=== PATIENT | male | born 1975 | race Caucasian/White ===

== ENCOUNTER 2017-02-16 17:31 | Observation (INO) | payer BC ==
[~2017-02-16] VITALS: Ht 182.9 cm; Wt 102.5 kg
[~2017-02-16 17:31] MED LIST: CLARITIN,ALAVAR10 MG PO
[2017-02-16 18:40] LABS: BASOPHIL COUNT 0.1 K/uL (0-0.1); EOSINOPHIL COUNT 0.2 K/uL (0-0.3); HEMATOCRIT 35.8 % (38.0-50.0); IMMATURE GRANULOCYTE (%) 0.7 % (0.0-0.7); IMMATURE GRANULOCYTE COUNT 0.1 K/uL; INSTRUMENT ABS NEUTROPHIL CT 15.6 K/uL; LYMPHOCYTE COUNT 1.4 K/uL (1.0-2.8); MCH 29.4 PG (29.0-34.0); MCHC 34.6 G/DL (30.0-36.0); MCV 84.8 FL (86-99); MEAN PLAT.VOLUME 9.7 uM^3 (9.0-12.4); MONOCYTE (%) 5.6 % (3-12); NEUTROPHIL (%) 84.7 % (45-76); NEUTROPHIL COUNT 15.6 K/uL (1.8-6.4); PLATELET COUNT 216 K/uL (156-360); RBC DIS.WIDTH-CV 12.6 % (11.8-14.6); RBC DIS.WIDTH-SD 38.6 % (39-53); RED BLOOD COUNT 4.22 M/uL (4.00-5.50); WHITE BLOOD COUNT 18.4 K/uL (4.1-10.2)
[2017-02-16 18:54] LABS: CHLORIDE 113 mEq/L (99-109); POTASSIUM 3.8 mEq/L (3.7-5.4); SODIUM 138 mEq/L (136-147)
[2017-02-16 18:56] LABS: GLUCOSE 120 mg/dL (70-99)
[2017-02-16 18:57] LABS: ANION GAP 6 MEQ/L (2-14)
[2017-02-16 18:58] LABS: TOTAL BILIRUBIN 0.2 mg/dL (0.0-1.0)
[2017-02-16 18:59] LABS: ALKALINE PHOSPHATASE 68 IU/L (3-129)
[2017-02-16 19:00] LABS: GFR ESTIMATE (CALCULATED) 44 mL/min/
[2017-02-16 19:01] LABS: UREA NITROGEN (BUN) 24 mg/dL (9-23)
[2017-02-16 19:03] LABS: CREATINE KINASE 422 IU/L (1-294)
[2017-02-16 20:26] LABS: ADD MIUA? YES; BILIRUBIN NEGATIVE; BLOOD SMALL; COLOR YELLOW ((YELLOW)); GLUCOSE (STRIP) 50; KETONES NEGATIVE; LEUKOCYTES NEGATIVE; NITRITE NEGATIVE; PROTEIN (STRIP) >=500; SPECIFIC GRAVITY 1.026 (1.000-1.030); UROBILINOGEN 0.2 MG/DL (0.2-1.0)
[2017-02-16 21:15] LABS: RED BLOOD CELLS 0-5 /HPF (0-5); WHITE BLOOD CELLS 0-5 /HPF (0-5)
[2017-02-16 21:16] LABS: BACTERIA RARE /HPF; EPITHELIAL CELLS NONE SEEN /HPF; MUCUS NONE SEEN /LPF
[2017-02-16] MEDS ORDERED: ERGOCALCIF50000 UNIT PO (21:23)
[2017-02-16] MEDS ORDERED: CRESTOR40 MG PO (21:24)
[2017-02-17 00:24] VITALS: BP 132/75
[2017-02-17 02:25] LABS: BASOPHIL COUNT 0.1 K/uL (0-0.1); EOSINOPHIL (%) 0.6 % (0-5); EOSINOPHIL COUNT 0.1 K/uL (0-0.3); HEMATOCRIT 33.8 % (38.0-50.0); IMMATURE GRANULOCYTE (%) 0.4 % (0.0-0.7); IMMATURE GRANULOCYTE COUNT 0.1 K/uL; INSTRUMENT ABS NEUTROPHIL CT 12.6 K/uL; LYMPHOCYTE COUNT 1.9 K/uL (1.0-2.8); MCH 29.2 PG (29.0-34.0); MCHC 33.4 G/DL (30.0-36.0); MCV 87.3 FL (86-99); MEAN PLAT.VOLUME 9.9 uM^3 (9.0-12.4); MONOCYTE (%) 7.1 % (3-12); MONOCYTE COUNT 1.1 K/uL (0-0.8); NEUTROPHIL (%) 79.4 % (45-76); NEUTROPHIL COUNT 12.6 K/uL (1.8-6.4); PLATELET COUNT 192 K/uL (156-360); RBC DIS.WIDTH-CV 12.9 % (11.8-14.6); RBC DIS.WIDTH-SD 40.9 % (39-53); RED BLOOD COUNT 3.87 M/uL (4.00-5.50); WHITE BLOOD COUNT 15.8 K/uL (4.1-10.2)
[2017-02-17 02:37] LABS: CHLORIDE 114 mEq/L (99-109); POTASSIUM 3.7 mEq/L (3.7-5.4); SODIUM 141 mEq/L (136-147)
[2017-02-17 02:39] LABS: GLUCOSE 115 mg/dL (70-99)
[2017-02-17 02:40] LABS: ANION GAP 6 MEQ/L (2-14)
[2017-02-17 02:41] LABS: TOTAL BILIRUBIN 0.2 mg/dL (0.0-1.0)
[2017-02-17 02:43] LABS: ALKALINE PHOSPHATASE 65 IU/L (3-129); GFR ESTIMATE (CALCULATED) 42 mL/min/
[2017-02-17 02:44] LABS: UREA NITROGEN (BUN) 23 mg/dL (9-23)
[2017-02-17 02:45] LABS: DIRECT BILIRUBIN 0.1 mg/dL (0.0-0.3)
[2017-02-17 02:48] LABS: TROP-I INTERPRETATION NEGATIVE; TROPONIN-I 0.03 ng/mL (0.0-0.30)
[2017-02-17 03:07] LABS: AMPHETAMINES QUANT VALUE 0 NG/ML; BARBITUATES QUANT VALUE 0 NG/ML; BENZODIAZEPINES QUANT VALUE 0 NG/ML; BENZODIAZEPINES, URINE SCREEN Negative (200 ng/mL); MARIJUANA QUANT VALUE 0 NG/ML; OPIATES QUANTITATIVE VALUE 0 NG/ML; PHENCYCLIDINE QUANT VALUE 0 NG/ML
[2017-02-17 04:56] VITALS: BP 146/77
[2017-02-17 07:09] LABS: TROP-I INTERPRETATION NEGATIVE; TROPONIN-I 0.04 ng/mL (0.0-0.30)
[2017-02-17 08:50] VITALS: BP 132/69
[2017-02-17 11:34] VITALS: BP 130/67
[2017-02-17 12:49] LABS: CREATINE KINASE 912 IU/L (1-294)
[2017-02-17 17:30] VITALS: BP 137/79
[2017-02-17 20:00] VITALS: BP 145/66
[2017-02-18 00:09] VITALS: BP 141/67
[2017-02-18 03:54] VITALS: BP 140/69
[2017-02-18 06:52] LABS: BASOPHIL COUNT 0.1 K/uL (0-0.1); EOSINOPHIL (%) 3.9 % (0-5); EOSINOPHIL COUNT 0.4 K/uL (0-0.3); HEMATOCRIT 33.1 % (38.0-50.0); IMMATURE GRANULOCYTE (%) 0.4 % (0.0-0.7); INSTRUMENT ABS NEUTROPHIL CT 7.3 K/uL; LYMPHOCYTE COUNT 1.8 K/uL (1.0-2.8); MCH 29.6 PG (29.0-34.0); MCHC 33.5 G/DL (30.0-36.0); MCV 88.3 FL (86-99); MEAN PLAT.VOLUME 10.5 uM^3 (9.0-12.4); MONOCYTE (%) 7.9 % (3-12); MONOCYTE COUNT 0.8 K/uL (0-0.8); NEUTROPHIL (%) 70.2 % (45-76); NEUTROPHIL COUNT 7.3 K/uL (1.8-6.4); PLATELET COUNT 193 K/uL (156-360); RBC DIS.WIDTH-CV 12.8 % (11.8-14.6); RBC DIS.WIDTH-SD 41.6 % (39-53); RED BLOOD COUNT 3.75 M/uL (4.00-5.50)
[2017-02-18 06:54] LABS: WHITE BLOOD COUNT 10.4 K/uL (4.1-10.2)
[2017-02-18 07:02] LABS: ALKALINE PHOSPHATASE 55 IU/L (3-129); ANION GAP 6 MEQ/L (2-14); CHLORIDE 115 MEQ/L (99-109); GFR ESTIMATE (CALCULATED) 44 mL/min/; GLUCOSE 89 mg/dL (70-99); POTASSIUM 3.6 MEQ/L (3.7-5.4); SAMPLE HEMOLYSIS CHECK 0; SAMPLE ICTERIC CHECK 0; SAMPLE LIPEMIA CHECK 0; SODIUM 142 MEQ/L (136-147); TOTAL BILIRUBIN 0.2 MG/DL (0.0-1.0); UREA NITROGEN (BUN) 18 mg/dL (9-23)
[2017-02-18 09:33] VITALS: BP 159/75
[2017-02-18 10:51] LABS: CREATINE KINASE 434 IU/L (1-294)
[2017-02-18 11:27] LABS: MAGNESIUM 2.5 mg/dl (1.3-2.7)
[2017-02-18] MEDS ORDERED: ASPIRIN81 M2 PO (12:04)
[2017-02-18] MEDS ORDERED: KEPPRA500 MG PO (12:05)
[2017-02-18 12:25] VITALS: BP 163/68
== END 2017-02-18 13:39 | disposition home or self-care (01) ==
LOC: EME 17:31 → 5WEST 22:13 → EDOF 22:13 → 5WEST 23:58
PROVIDERS: Emergency Medicine; Hospitalist; Physician Assistant Medical
DX: R56.9 Unspecified convulsions (principal); R55 Syncope and collapse; N17.9 Acute kidney failure, unspecified; M62.82 Rhabdomyolysis; N18.9 Chronic kidney disease, unspecified; D72.829 Elevated white blood cell count, unspecified; E88.09 Other disorders of plasma-protein metabolism, not elsewhere classified; E78.5 Hyperlipidemia, unspecified; Z87.891 Personal history of nicotine dependence
CPT/HCPCS: 70450; 71010; 71250; 72125; 74176; 80048; 80053; 80076; 80306 90; 81003; 82550; 83605; 83735; 84484; 85025; 87040; 93005; 93306; 95819; 99281; 99285; G0378; G0480; J7030

== ENCOUNTER 2017-08-08 18:51 | Emergency (ER) | payer BC ==
[~2017-08-08] VITALS: Ht 182.9 cm; Wt 99.2 kg
[~2017-08-08 18:51] MED LIST changes: +ASPIRIN81 M2 PO; +CRESTOR40 MG PO; +ERGOCALCIF50000 UNIT PO; +KEPPRA500 MG PO
[2017-08-08 20:38] LABS: HEMATOCRIT 38.9 % (38.0-50.0); MCH 30.1 PG (29.0-34.0); MCHC 35.5 G/DL (30.0-36.0); MCV 84.7 FL (86-99); MEAN PLAT.VOLUME 9.2 uM^3 (9.0-12.4); PLATELET COUNT 256 K/uL (156-360); RBC DIS.WIDTH-CV 12.4 % (11.8-14.6); RBC DIS.WIDTH-SD 37.7 % (39-53); RED BLOOD COUNT 4.59 M/uL (4.00-5.50); WHITE BLOOD COUNT 23.5 K/uL (4.1-10.2)
[2017-08-08 20:47] LABS: CHLORIDE 111 mEq/L (99-109); POTASSIUM 3.6 mEq/L (3.7-5.4); SODIUM 137 mEq/L (136-147)
[2017-08-08 20:49] LABS: GLUCOSE 135 mg/dL (70-99)
[2017-08-08 20:50] LABS: ANION GAP 6 MEQ/L (2-14)
[2017-08-08 20:53] LABS: GFR ESTIMATE (CALCULATED) 39 mL/min/
[2017-08-08 20:54] LABS: UREA NITROGEN (BUN) 25 mg/dL (9-23)
[2017-08-08 21:00] LABS: TROP-I INTERPRETATION NEGATIVE; TROPONIN-I < 0.01 ng/mL (0.0-0.30)
[2017-08-08] MEDS ORDERED: NORCO 5/3251 TABLET PO (22:44)
[2017-08-08 23:06] LABS: ADD MIUA? YES; AMPHETAMINE NEGATIVE (500 ng/mL); BARBITURATES NEGATIVE (200 ng/mL); BENZODIAZEPINES NEGATIVE (150 ng/mL); BILIRUBIN NEGATIVE; BLOOD LARGE; COCAINE NEGATIVE (150 ng/mL); COLOR AMBER ((YELLOW)); GLUCOSE (STRIP) 150; INTERNAL CONTROLS VALID? YES; KETONES NEGATIVE; LEUKOCYTES NEGATIVE; METHADONE NEGATIVE (200 ng/mL); METHAMPHETAMINE NEGATIVE (500 ng/mL); NITRITE NEGATIVE; OPIATES (MORPHINE) NEGATIVE (100 ng/mL); OXYCODONE NEGATIVE (100 ng/mL); PHENCYCLIDINE NEGATIVE (25 ng/mL); PROPOXYPHENE NEGATIVE (300 ng/mL); PROTEIN (STRIP) >=500; SPECIFIC GRAVITY 1.026 (1.000-1.030); THC CANNABINOIDS PRESUMPTIVE POSITIVE (50 ng/mL); TRICYCLIC ANTIDEPRESSANTS NEGATIVE (300 ng/mL); UROBILINOGEN 0.2 MG/DL (0.2-1.0)
[2017-08-08 23:07] LABS: ADD MEDTOX COMMENT Y
[2017-08-08 23:40] LABS: UCUL ADDED? YES
[2017-08-09 02:50] VITALS: BP 128/61
== END 2017-08-09 02:52 | disposition home or self-care (01) ==
LOC: EME 18:51
PROVIDERS: Emergency Medicine
DX: S22.088A Other fracture of T11-T12 vertebra, initial encounter for closed fracture (principal); S32.018A Other fracture of first lumbar vertebra, initial encounter for closed fracture; R07.9 Chest pain, unspecified; R10.9 Unspecified abdominal pain; W18.2XXA Fall in (into) shower or empty bathtub, initial encounter; Y93.E1 Activity, personal bathing and showering; R56.9 Unspecified convulsions; F10.10 Alcohol abuse, uncomplicated; N28.9 Disorder of kidney and ureter, unspecified; N18.9 Chronic kidney disease, unspecified; Z87.891 Personal history of nicotine dependence
CPT/HCPCS: 70450; 71101; 72070; 72125; 72131; 74176; 80048; 81003; 84484; 84999; 85027; 87086; 93005; 99281; 99285; J1885; J2405

== ENCOUNTER → 2017-10-15 | Outpatient (CLI) | payer BC ==
[~2017-10-15] MED LIST changes: +KEPPRA1000 MG PO; +MOBIC15 MG PO; +NORCO 5/3251 TABLET PO; +TYLENOL EXTRA500 MG PO
== END | disposition home or self-care (01) ==
LOC: OPR 07:59 → EDSTATUS 08:00
DX: I12.9 Hypertensive chronic kidney disease with stage 1 through stage 4 chronic kidney disease, or unspecified chronic kidney disease (principal); N18.3 Chronic kidney disease, stage 3 (moderate); R31.9 Hematuria, unspecified; R80.9 Proteinuria, unspecified; E55.9 Vitamin D deficiency, unspecified; E78.01 Familial hypercholesterolemia; D72.829 Elevated white blood cell count, unspecified
CPT/HCPCS: 77012; 88305; 88313 90; 88346 90; 88348 90; J3010